=== PATIENT | female | born 2005 | race Caucasian/White ===

== ENCOUNTER 2024-05-07 02:16 | Emergency (ER) | payer MEDICAID, SELFPAY ==
[2024-05-07 02:19] VITALS: BP 99/63; PULSE 91; RESP 16; TEMP 36.7; O2SAT 100; BMI 22.8
--- NOTE | 2024-05-07 03:48 | ED.GENADULT ---
HPI - General Adult General Chief complaint: General Medical Stated complaint: pt states she had a heart attack Time Seen by Provider: 05/07/24 03:48 History of Present Illness ED Provider: Kyaw TAMAYO narrative: The patient is an ordinarily healthy 18-year-old female who is a student at the [employer] in [place]. She says that tonight she was hanging out with some new friends watching TV. She had one beer and ate two edibles (total 10 mg of THC). At some point she developed palpitations and a sense of chest discomfort as well as body shaking and tingling and jaw clenching. She felt quite unwell and called a friend who drove her to the emergency room here. She still feels some tightness in her chest although on the whole she is feeling better than when she arrived. She is on oral contraceptive. No calf swelling or pain in her legs. No fever sweats or chills. Related Data Allergies Allergy/AdvReac Type Severity Reaction Status Date / Time No Known Allergies Allergy Verified 05/07/24 02:25 Review of Systems Review of Systems: Yes all other systems are reviewed and are negative COUNT INCLUDES THE [facility] Social History Social History Advance Directives: No Advance Directives Information Provided: No Physical Exam ED Vital Signs: Vital Signs - 24 hr 05/07/24 02:19 Temperature 98.0 F Pulse Rate 91 Respiratory Rate 16 Blood Pressure 99/63 Pulse Oximetry 100 Oxygen Delivery Method Room Air BMI result Body Mass Index 22.8 Medical Decision Making Medical Decision Making [facility] Narrative: The patient is a 18-year-old female who was a student at [employer]. She presents to the hospital with palpitations and chest pain after using edibles and having a beer. She is on oral contraceptive. Her EKG is unremarkable. D-dimer is normal. She was feeling better spontaneously. I think this is an adverse reaction to the THC consumed. She will be advised to use less THC in the future. I think she may be discharged. Lab Data 05/07/24 04:25 05/07/24 04:25 Labs: Lab Results 05/07/24 Range/Units 04:25 WBC 7.6 (4.8-10.8) X10*3/uL RBC 4.19 L (4.20-5.50) X10*6/uL Hgb 12.3 (12.0-16.0) g/dl Hct 35.6 L (37.0-47.0) % MCV 85.0 (80.0-98.0) fL MCH 29.4 (27.0-33.0) pg MCHC 34.6 (31.0-35.0) g/dl RDW 12.3 (11.0-16.0) % Plt Count 257 (160-400) X10*3/uL MPV 9.9 (9.4-12.3) fL Immature Gran % (Auto) 0.3 (0.0-0.4) % Neut % (Auto) 67.4 (45-73) % Lymph % (Auto) 22.2 (20-40) % [place] % (Auto) 9.0 (2-11) % Eos % (Auto) 0.4 (0-4) % Baso % (Auto) 0.7 (0-2) % Lymph # (Auto) 1.7 (1.2-4.9) X10*3/uL [place] # (Auto) 0.7 (0.1-1.2) X10*3/uL Eos # (Auto) 0.0 (0.0-0.4) X10*3/uL Baso # (Auto) 0.1 (0.0-0.2) X10*3/uL Abs Immat Gran (auto) 0.02 (0.00-0.03) X10*3/uL Absolute Neuts (auto) 5.1 (2.0-8.3) x10*3/uL Absolute Nucleated RBC 0.000 (0.0-0.012) X10*3/uL Nucleated RBC % (auto) 0.0 (0.0-0.2) /100WBC D-Dimer High Sensitivty 150 NG/ML Sodium 141 (135-145) mmol/L Potassium 3.8 (3.3-5.1) mmol/L Chloride 108 (96-108) mmol/L Carbon Dioxide 25 (22-29) mmol/L Anion Gap 12 (12-20) BUN 12 (9-16) mg/dL Creatinine 0.79 (0.5-1.4) mg/dL Estim Creat Clear Calc 115.5 Estimated GFR > 60 Random Glucose 94 (60-115) mg/dL Calcium 10.3 H (8.4-10.2) mg/dL Beta HCG, Quant < 2 mIU/mL Discharge Plan Discharge Clinical Impression: Palpitations, Adverse drug reaction Patient Disposition: Home, Self-Care Additional Instructions: Your testing in the emergency room is very reassuring. I believe that your symptoms were likely related to the edibles you consumed. In the future I would recommend that you do not take more than 5 mg of THC at a time. Please follow up with the [facility] if you have any ongoing questions or concerns. Return to the emergency room if significantly worse. Referrals: [facility] [Provider Group] Print Language: Irish
--- NOTE | 2024-05-07 03:59 | ECG_ITS ---
Test Reason : GEN MED Blood Pressure : / mmHG Vent. Rate : 064 BPM Atrial Rate : 064 BPM P-R Int : 098 ms QRS Dur : 088 ms QT Int : 440 ms P-R-T Axes : 034 064 041 degrees QTc Int : 453 ms Sinus rhythm with short [place] Otherwise normal ECG No previous ECGs available Referred By: Pradip Card Electronically Signed By:Humberto Hogan
[2024-05-07 04:29] LABS: MANUAL DIFF FLAG NO
[2024-05-07 04:30] LABS: Basophils Absolute Auto 0.1 X10*3/uL (0.0-0.2); Basophils Percent Auto 0.7 % (0-2); Eosinophils Percent Auto 0.4 % (0-4); Hematocrit 35.6 % (37.0-47.0); Hemoglobin 12.3 g/dl (12.0-16.0); Imm Gran Abs Auto 0.02 X10*3/uL (0.00-0.03); Imm Gran Pct Auto 0.3 % (0.0-0.4); Lymphocytes Absolute Auto 1.7 X10*3/uL (1.2-4.9); Lymphocytes Percent Auto 22.2 % (20-40); Mean Corpuscular HGB Conc 34.6 g/dl (31.0-35.0); Mean Corpuscular Hemoglobin 29.4 pg (27.0-33.0); Mean Platelet Volume 9.9 fL (9.4-12.3); Monocytes Absolute Auto 0.7 X10*3/uL (0.1-1.2); Neutrophils Absolute Auto 5.1 x10*3/uL (2.0-8.3); Neutrophils Percent Auto 67.4 % (45-73); Platelet Count 257 X10*3/uL (160-400); Red Blood Count 4.19 X10*6/uL (4.20-5.50); Red Cell Distribution Width 12.3 % (11.0-16.0); White Blood Count 7.6 X10*3/uL (4.8-10.8)
[2024-05-07 04:40] LABS: D Dimer High Sensitivity 150 NG/ML
[2024-05-07 04:43] LABS: Anion Gap 12 (12-20); Blood Urea Nitrogen 12 mg/dL (9-16); Calcium 10.3 mg/dL (8.4-10.2); Carbon Dioxide 25 mmol/L (22-29); Chloride 108 mmol/L (96-108); Creatinine Clr Calc Pharmacy 115.5; Estimated Glomerular Filt Rate > 60; Glucose Random 94 mg/dL (60-115); Potassium 3.8 mmol/L (3.3-5.1); Sodium 141 mmol/L (135-145)
[2024-05-07 04:50] LABS: HCG Quantitative < 2 mIU/mL
[2024-05-07 05:32] VITALS: BP 109/91; PULSE 86; RESP 16; TEMP 36.9; O2SAT 100
== END 2024-05-07 05:33 | disposition home or self-care (01) ==
PROVIDERS: Emergency Provider Emergency Medicine
DX: R00.2 Palpitations (principal); T40.715A Adverse effect of cannabis, initial encounter; Y92.214 College as the place of occurrence of the external cause
CPT/HCPCS: 36415; 80048; 84702; 85025; 85379; 93005; 99283; 99284

== ENCOUNTER → 2024-05-07 03:59 | Outpatient (BNV) | payer MEDICAID, SELFPAY | PROVIDERS: Emergency Provider Emergency Medicine; Visit Provider Internal Medicine Cardiovascular Disease | DX: R00.2 Palpitations (principal) | CPT/HCPCS: 93010 ==